=== PATIENT | male | born 2000 | race American Indian/Alaskan Native ===

== ENCOUNTER 2018-06-22 00:52 | Emergency (ER) | payer MEDICAID ==
[2018-06-22] MEDS ORDERED: FLUoxetine 10 MG Cap PO ONE ×2 (01:54→02:04)
--- NOTE | 2018-06-22 01:55 | EDM.PDOCBH ---
ED HPI GENERAL MEDICAL PROBLEM - General Chief Complaint: Behavioral/Psych Stated Complaint: MED [facility] Time Seen by Provider: 06/22/18 01:49 Source of Information: Reports: Patient, Family History Limitations: Reports: No Limitations - History of Present Illness INITIAL COMMENTS - FREE TEXT/NARRATIVE: This child was brought in by mom after a panic attack. He ran out of Prozac and had a panic attack whild with friends. Mom insists that he needs to get back on prozac to prevent another attack. Treatments EMERGENCY ROOM TECHNICIAN: Reports: Other (see below) Other Treatments EMERGENCY ROOM TECHNICIAN: none - Related Data Allergies Allergy/AdvReac Type Severity Reaction Status Date / Time Sulfa (Sulfonamide Allergy Hives Verified 06/22/18 01:08 Antibiotics) Home Meds: Home Meds FLUoxetine [PROzac] 10 mg PO DAILY 06/22/18 [History] Past Medical History Psychiatric History: Reports: Anxiety, Bipolar, Depression Social & Family History - Tobacco Use Smoking Status *Q: Never Smoker - Caffeine Use Caffeine Use: Reports: Soda - Recreational Drug Use Recreational Drug Use: No ED ROS GENERAL - Review of Systems Review Of Systems: ROS reveals no pertinent complaints other than HPI. ED EXAM, BEHAVIORAL HEALTH - Physical Exam Exam: See Below Exam Limited By: No Limitations General Appearance: WD/WN, No Apparent Distress, Other (initally sleeping but arrousable) Eye Exam: Bilateral Eye: Normal Inspection Ears: Normal External Exam Nose: Normal Inspection Throat/Mouth: Normal Inspection Head: Atraumatic Neck: Normal Inspection Respiratory/Chest: No Respiratory Distress Cardiovascular: Regular Rate, Rhythm GI/Abdominal: Non-Tender Extremities: Normal Inspection Neurological: Normal Mood/Affect, CN II-XII Intact Psychiatric: Alert, Normal Affect COURSE, BEHAVIORAL HEALTH COMP - Course Vital Signs: Last Vital Signs Temp 36.0 C 06/22/18 03:38 Pulse 70 06/22/18 03:38 Resp 12 06/22/18 03:38 BP 108/62 06/22/18 03:38 Pulse Ox 96 06/22/18 03:38 Orders, Labs, Meds: Medications Discontinued Medications Generic Name Dose Route Start Last Admin Trade Name Freq PRN Reason Stop Dose Admin Fluoxetine HCl 10 mg 06/22/18 01:54 06/22/18 02:10 Prozac PO 06/22/18 01:55 Not Given ONETIME ONE Fluoxetine HCl Confirm 06/22/18 02:02 08/12/18 02:07 Prozac Administered 06/22/18 02:03 Not Given Dose 20 mg .ROUTE .STK-MED ONE Fluoxetine HCl 20 mg 06/22/18 02:04 06/22/18 02:10 Prozac PO 06/22/18 02:05 20 mg ONETIME ONE Administration Re-Assessment/Re-Exam: This man received 20 mg Prozac po Departure - Departure Time of Disposition: 01:54 Disposition: Home, Self-Care 01 Condition: Fair Clinical Impression: Panic disorder - Discharge Information Instructions: Panic Attack, [id number] Referrals: PCP,None [Primary Care Provider] - Forms: ED Department Discharge Additional Instructions: Restart the Prozac later today. It may take a few days for it to build up in you body so don't expect immediate results.
[2018-06-22] MEDS ORDERED: FLUoxetine 20 MG Cap ONE (02:02)
== END 2018-06-22 02:15 | disposition home or self-care (01) ==
LOC: JP.ED 00:52
DX: F41.0 Panic disorder [episodic paroxysmal anxiety] (principal); Z88.2 Allergy status to sulfonamides; Z79.899 Other long term (current) drug therapy
CPT/HCPCS: 99283; A9270